=== PATIENT | male | born 1990 | race Two or more races ===

== ENCOUNTER 2024-02-29 05:12 | Emergency (ER) | payer OTHER ==
[~2024-02-29] VITALS: Ht 177.8 cm; Wt 122.3 kg
[2024-02-29 05:20] VITALS: TEMP 98.2
[2024-02-29 05:48] LABS: COVID AG,FIA SOURCE NASAL SWAB
[2024-02-29 06:12] LABS: INFLUENZA TYPE B NEGATIVE FOR TYPE B (NEGATIVE)
[2024-02-29 06:13] LABS: SARS-COV2 (COVID) ANTIGEN,FIA Negative (Negative)
[2024-02-29] MEDS: SODIUM CHLORIDE 0.9% 1,000 ML IV ONE (06:29)
[2024-02-29] MEDS: ONDANSETRON HCL 4 MG/2 ML VIAL IVP ONE (06:30)
[2024-02-29] MEDS: FAMOTIDINE 20 MG/2 ML VIAL IVP ONE (06:30)
[2024-02-29] MEDS: MAG HYDROX/ALUMINUM HYD/SIMETH 30 ML SUSPENSION UDCUP PO ONE (06:30)
[2024-02-29] MEDS: KETOROLAC TROMETHAMINE 30 MG/ML VIAL IVP ONE (06:30)
[2024-02-29 06:31] LABS: BASOPHILS % (AUTO) 0.5 % (0.0-2.0); EOSINOPHILS % (AUTO) 0.4 % (1.0-6.0); HEMOGLOBIN 14.2 g/dL (13.5-17.5); LYMPHOCYTES # (AUTO) 1.4 K/uL (1.0-4.8); LYMPHOCYTES % (AUTO) 20.8 % (22.0-44.0); MEAN CORPUSCULAR HEMOGLOBIN 28.2 pg (26.0-34.0); MEAN CORPUSCULAR VOLUME 83 fL (80-100); MONOCYTES # (AUTO) 0.6 K/uL (0.1-1.0); MONOCYTES % (AUTO) 9.9 % (2.0-9.0); NEUTROPHILS # (AUTO) 4.5 K/uL (1.8-7.7); NEUTROPHILS % (AUTO) 68.4 % (40.0-70.0); PLATELET COUNT (AUTO) 163 K/uL (150-450); RED BLOOD CELL COUNT(AUTO) 5.04 MIL/uL (4.50-5.90); RED CELL DISTRIBUTION WIDTH 13.8 % (11.5-14.5); WHITE BLOOD COUNT (AUTO) 6.5 K/uL (4.5-11.0)
[2024-02-29 06:42] VITALS: BP 136/72; PULSE 84; RESP 18; O2SAT 98
[2024-02-29 06:56] LABS: ANION GAP 9 mmol/L (8-16); CALCIUM, TOTAL 8.7 mg/dL (8.8-10.5); CARBON DIOXIDE 28 mmol/L (22-29); CHLORIDE 99 mmol/L (98-107); CREATININE 1.19 mg/dL (0.60-1.30); GLOMERULAR FILTR. RATE CALC > 60 mL/min (>60); GLUCOSE,RANDOM 83 mg/dL (70-110); POTASSIUM 4.2 mmol/L (3.5-5.1); SODIUM SERUM 136 mmol/L (136-145); UREA NITROGEN, BLOOD 22 mg/dL (7-18)
[2024-02-29 07:00] LABS: ALANINE AMINOTRANSFERASE 32 U/L (12-78); ALBUMIN 3.3 g/dL (3.4-5.0); ALKALINE PHOSPHATASE 74 U/L (46-116); ASPARTATE AMINOTRANSFERASE 42 U/L (15-37); BILIRUBIN,TOTAL 0.4 mg/dL (0.1-1.0); LIPASE 48 U/L (16-77); TOTAL PROTEIN, SERUM 7.3 g/dL (6.4-8.2)
[2024-02-29] MEDS ORDERED: SODIUM CHLORIDE 0.9% 100 ML ONE (07:09)
[2024-02-29] MEDS ORDERED: IOHEXOL 350 MG/ML 100 ML VIAL ONE (07:09)
[2024-02-29 07:44] LABS: INFLUENZA TYPE A POSITIVE FOR TYPE A (NEGATIVE)
[2024-02-29] MEDS ORDERED: ACET-3385 PO (08:54)
[2024-02-29] MEDS ORDERED: ONDA-104 PO (08:54)
== END 2024-02-29 09:05 | disposition home or self-care (01) ==
LOC: EMS 05:14
DX: J11.1 Influenza due to unidentified influenza virus with other respiratory manifestations (principal); R10.9 Unspecified abdominal pain; R11.2 Nausea with vomiting, unspecified; Z20.822 Contact with and (suspected) exposure to COVID-19
CPT/HCPCS: 99285; 74177; 96374; 96375; 96361; 87426; 80048; 80076; 83690; 85025; 87804; 36415; Q9967; J3490; J1885; J2405; J7030; J7050